=== PATIENT | female | born 1990 | race African-American/Black ===

== ENCOUNTER 2017-12-19 17:20 | Emergency (ER) | payer MEDICAID ==
[~2017-12-19] VITALS: Ht 167.6 cm; Wt 93.0 kg
[2017-12-19] MEDS ORDERED: IBUPROFEN 800MG TABLET PO ONE (20:45)
[2017-12-19 21:13] VITALS: BP 112/75
== END 2017-12-19 22:38 | disposition home or self-care (01) ==
LOC: ER 18:46
DX: S43.402A Unspecified sprain of left shoulder joint, initial encounter (principal); V43.52XA Car driver injured in collision with other type car in traffic accident, initial encounter; Y93.89 Activity, other specified; Y92.488 Other paved roadways as the place of occurrence of the external cause
CPT/HCPCS: 73030; 73060; 81025; 99284

== ENCOUNTER 2023-11-30 12:21 | Emergency (ER) | payer MEDICAID ==
[~2023-11-30] VITALS: Ht 165.1 cm; Wt 91.0 kg
[2023-11-30 12:24] VITALS: BP 150/100; PULSE 92; RESP 20; TEMP 98.8; O2SAT 99
[2023-11-30 13:27] LABS: BASOPHILS % 0.9 % (0.0-2.0); EOSINOPHILS % 1.4 % (0.0-5.0); HEMATOCRIT. 40.1 % (36.0-48.0); HEMOGLOBIN. 13.4 g/dL (12.0-16.0); LYMPHOCYTES % 35.4 % (20.0-50.0); MEAN CORPUSCULAR HGB CONC 33.5 g/dL (31.0-37.0); MEAN CORPUSCULAR VOLUME 80.6 fL (81.0-99.0); MEAN PLATELET VOLUME 8.5 fl (7.4-10.4); MONOCYTES % 9.1 % (2.0-8.0); NEUTROPHILS % 53.2 % (40.0-76.0); PLATELET 256 x1000/uL (130-400); RED BLOOD CELL COUNT 4.97 mill/uL (4.2-5.4); RED CELL DISTRIBUTION WIDTH 13.9 % (11.6-14.6); WHITE BLOOD COUNT 5.2 x1000/uL (4.5-11.0)
[2023-11-30 13:45] LABS: HCG SCREEN NEGATIVE
[2023-11-30 13:52] LABS: ALANINE AMINOTRANSFERASE 12 IU/L (10-49); ALBUMIN 4.5 g/dL (3.2-4.8); ASPARTATE AMINOTRANSFERASE 19 IU/L (<34); BILIRUBIN TOTAL 0.8 mg/dL (0.1-1.0); CALCIUM 9.4 mg/dL (8.7-10.4); CARBON DIOXIDE 25 mEq/L (21-32); CHLORIDE 103 mEq/L (98-107); CREATINE KINASE 147 IU/L (34-145); CREATININE 0.9 mg/dL (0.6-1.0); GLUCOSE 96 mg/dL (70-105); POTASSIUM 3.7 mEq/L (3.5-5.1); PROTEIN TOTAL 7.5 g/dL (6.0-8.3); SODIUM 136 mEq/L (136-145); UREA NITROGEN BLOOD 7 mg/dL (9-23)
== END 2023-11-30 16:22 | disposition home or self-care (01) ==
LOC: ER 12:21
DX: R20.2 Paresthesia of skin (principal)
CPT/HCPCS: 36415; 80053; 82550; 83735; 84703; 85025; 93970; 99284